=== PATIENT | male | born 1995 | race Two or more races ===

== ENCOUNTER 2022-11-23 20:27 | Emergency (ER) | payer BC, OTHER ==
[~2022-11-23] VITALS: Ht 177.8 cm; Wt 84.0 kg
[2022-11-23] MEDS ORDERED: IOHEXOL 350 MG/ML 100ML IJ ONE (22:12)
[2022-11-23 23:03] VITALS: BP 124/75; PULSE 63; RESP 16; TEMP 97.6; O2SAT 97
== END 2022-11-23 23:03 | disposition home or self-care (01) ==
LOC: ER 20:27
DX: J02.9 Acute pharyngitis, unspecified (principal); R06.02 Shortness of breath
CPT/HCPCS: 70487; 99285; Q9967